=== PATIENT | female | born 1970 | race Two or more races ===

== ENCOUNTER 2023-10-12 08:00 | Emergency (ER) | payer BC ==
[2023-10-12 08:13] VITALS: BP 153/87; PULSE 62; RESP 18; TEMP 97.6; BMI 21.9
[2023-10-12] MEDS ORDERED: KETOROLAC TROMETHAMINE 30 MG/1 ML VIAL IM ONE (09:10)
[2023-10-12] MEDS ORDERED: LIDOCAINE 4% PATCH TP ONE ×2 (09:10→09:21)
[2023-10-12] MEDS ORDERED: ACETAMINOPHEN 325 MG TABLET (FP) PO ONE (09:11)
[2023-10-12] MEDS ORDERED: ACETAMINOPHEN 325 MG TABLET (FP) ONE (09:21)
[2023-10-12] MEDS ORDERED: KETOROLAC TROMETHAMINE 30 MG/1 ML VIAL ONE (09:22)
[2023-10-12] MEDS ORDERED: LIDOCAINE PATCH REMOVAL MC ONE (22:00)
== END 2023-10-12 10:47 | disposition home or self-care (01) ==
LOC: JER 08:00
PROC: 3E0233Z Introduction of Anti-inflammatory into Muscle, Percutaneous Approach (ICD-10-PCS; principal; 2023-10-12)
DX: M25.551 Pain in right hip (principal); M54.41 Lumbago with sciatica, right side
CPT/HCPCS: 99284-25